=== PATIENT | female | born 1995 | race American Indian/Alaskan Native ===

== ENCOUNTER 2017-05-31 11:18 | Emergency (ER) | payer OTHER ==
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
[2017-05-31] MEDS ORDERED: MOTRIN PO ONE (13:56)
--- NOTE | 2017-05-31 14:32 | XRay Report ---
ROUTINE CHEST, TWO VIEWS: HISTORY: Cough. The trachea, heart, mediastinal contour, lung garcia and bony thorax are unremarkable. IMPRESSION: Unremarkable chest x-ray.
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
[2017-05-31 17:01] VITALS: BP 120/74
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
== END 2017-05-31 17:31 | disposition home or self-care (01) ==
LOC: ED 11:18
DX: S13.4XXA Sprain of ligaments of cervical spine, initial encounter (principal); S66.911A Strain of unspecified muscle, fascia and tendon at wrist and hand level, right hand, initial encounter; V89.2XXA Person injured in unspecified motor-vehicle accident, traffic, initial encounter; Y93.89 Activity, other specified; Y92.89 Other specified places as the place of occurrence of the external cause; Y99.8 Other external cause status
CPT/HCPCS: 71046

== ENCOUNTER 2017-10-17 01:18 | Emergency (ER) | payer SELFPAY ==
[2017-10-17 01:38] VITALS: BP 134/83
[2017-10-17] MEDS ORDERED: ZITHROMAX PO ONE (05:54)
[2017-10-17] MEDS ORDERED: XYLOCAINE 1% MPF 5 mL INFILTRATI ONE (05:54)
[2017-10-17] MEDS ORDERED: ROCEPHIN IM ONE (05:54)
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
[2017-10-17 06:20] LABS: Bilirubin,Urine NEG (Negative); Blood,Urine LG (Negative); Color,Urine Yellow (Yellow); Mucus,Urine 3+ /HPF
[2017-10-17 06:23] LABS: HCG Qualitative,Urine Negative (Negative)
== END 2017-10-17 06:54 | disposition home or self-care (01) ==
LOC: ED 01:40
DX: Z20.2 Contact with and (suspected) exposure to infections with a predominantly sexual mode of transmission (principal); R30.0 Dysuria
CPT/HCPCS: 81001; 81025; 87086; 87591; 96372; 99283; J0696

== ENCOUNTER 2018-11-30 12:18 | Emergency (ER) | payer SELFPAY ==
[2018-11-30 12:27] VITALS: BP 126/84
--- NOTE | 2018-11-30 12:37 | Emergency Department Report ---
ED ENT HPI - General Chief complaint: Earache Stated complaint: L EAR PAIN Time Seen by Provider: 11/30/18 12:26 Source: patient Mode of arrival: Ambulatory Limitations: No Limitations - History of Present Illness Initial comments: This is a 23-year-old female nontoxic well in appearance with no signs of distress presents to the ED with complaint of left earache. Patient denies any hearing loss. Denies any mastoid tenderness. Denies any fever, chills, headache, nausea, vomiting, chest pain or SOB. Denies any other complaints. Denies any allergies. MD complaint: ear pain -: days(s) Location: L ear Severity: mild Severity scale (0 -10): 8 Quality: aching Consistency: constant Improves with: none Worsens with: none Associated Symptoms: denies: fever, cough, gum swelling, toothache, pain with swallowing, sore throat, tinnitus, hearing loss, discharge from ear, rhinorrhea - Related Data Previous Rx's Medication Instructions Recorded Last Taken Type Cyclobenzaprine [Flexeril] 10 mg PO QHS PRN #7 tablet 05/31/17 Unknown Rx Ibuprofen [Motrin] 600 mg PO Q8H PRN #30 tablet 05/31/17 Unknown Rx Amoxicillin [Amoxicillin TAB] 875 mg PO BID #20 tablet 11/30/18 Unknown Rx Allergies Allergy/AdvReac Type Severity Reaction Status Date / Time No Known Allergies Allergy Verified 11/30/18 12:19 ED Dental HPI - General Chief complaint: Earache Stated complaint: L EAR PAIN Time Seen by Provider: 11/30/18 12:26 Source: patient Mode of arrival: Ambulatory Limitations: No Limitations - Related Data Previous Rx's Medication Instructions Recorded Last Taken Type Cyclobenzaprine [Flexeril] 10 mg PO QHS PRN #7 tablet 05/31/17 Unknown Rx Ibuprofen [Motrin] 600 mg PO Q8H PRN #30 tablet 05/31/17 Unknown Rx Amoxicillin [Amoxicillin TAB] 875 mg PO BID #20 tablet 11/30/18 Unknown Rx Allergies Allergy/AdvReac Type Severity Reaction Status Date / Time No Known Allergies Allergy Verified 11/30/18 12:19 ED Review of Systems ROS: Stated complaint: L EAR PAIN Other details as noted in HPI Constitutional: denies: chills, fever Eyes: denies: eye pain, eye discharge, vision change ENT: ear pain. denies: throat pain Respiratory: denies: cough, shortness of breath, wheezing Cardiovascular: denies: chest pain, palpitations Endocrine: no symptoms reported Gastrointestinal: denies: abdominal pain, nausea, diarrhea Genitourinary: denies: urgency, dysuria, discharge Musculoskeletal: denies: back pain, joint swelling, arthralgia Skin: denies: rash, lesions Neurological: denies: headache, weakness, paresthesias Psychiatric: denies: anxiety, depression Hematological/Lymphatic: denies: easy bleeding, easy bruising ED Past Medical Hx - Past Medical History Previous Medical History?: No Additional medical history: [place] - Surgical History Past Surgical History?: No - Social History Smoking Status: Never Smoker Substance Use Type: None - Medications Home Medications: Home Medications Medication Instructions Recorded Confirmed Last Taken Type Cyclobenzaprine [Flexeril] 10 mg PO QHS PRN #7 tablet 05/31/17 Unknown Rx Ibuprofen [Motrin] 600 mg PO Q8H PRN #30 tablet 05/31/17 Unknown Rx Amoxicillin [Amoxicillin TAB] 875 mg PO BID #20 tablet 11/30/18 Unknown Rx ED Physical Exam - General Limitations: No Limitations General appearance: alert, in no apparent distress - Head Head exam: Present: atraumatic, normocephalic - Expanded ENT Exam Expanded Ear exam: Present: normal external inspection TM/Canal exam: Erythema: Left TM, Bulging: Left TM Mouth exam: Present: normal external inspection Teeth exam: Present: normal inspection Throat exam: Positive: normal inspection - Neck Neck exam: Present: normal inspection, full ROM. Absent: tenderness, meningismus, lymphadenopathy ED Course Vital Signs 11/30/18 12:25 Temperature 98.0 F Pulse Rate 70 Respiratory 16 Rate Blood Pressure 126/84 O2 Sat by Pulse 98 Oximetry - Reevaluation(s) Reevaluation #1: 11/30/18 12:34 Patient is speaking in full sentences with no signs of distress noted. ED Medical Decision Making - Medical Decision Making Patient was instructed to Follow-up with a primary care doctor in 3-5 days or if symptoms worsen and continue return to emergency room as soon as possible. At time of discharge, the patient does not seem toxic or ill in appearance. No acute signs of distress noted. Patient agrees to discharge treatment plan of care. No further questions noted by the patient. Critical care attestation.: If time is entered above; I have spent that time in minutes in the direct care of this critically ill patient, excluding procedure time. ED Disposition Clinical Impression: Left otitis media Qualifiers: Otitis media type: unspecified Qualified Code(s): H66.92 - Otitis media, unspecified, left ear Disposition: DC- TO HOME OR SELFCARE Is pt being admited?: No Does the pt Need Aspirin: No Condition: Stable Instructions: Otitis Media (ED) Additional Instructions: Follow-up with a primary care doctor in 3-5 days or if symptoms worsen and continue return to emergency room as soon as possible. Prescriptions: Amoxicillin [Amoxicillin TAB] 875 mg PO BID #20 tablet Referrals: PRIMARY CAREMD [Referring] - 3-5 Days RAMAN KING MD [Staff Physician] - 3-5 Days [facility] [Outside] - 3-5 Days [facility] [Outside] - 3-5 Days Forms: Work/School Release Form(ED)
== END 2018-11-30 12:55 | disposition home or self-care (01) ==
LOC: ED 12:18
DX: H66.92 Otitis media, unspecified, left ear (principal); Z79.1 Long term (current) use of non-steroidal anti-inflammatories (NSAID)
CPT/HCPCS: 99282

== ENCOUNTER 2019-01-25 19:29 | Emergency (ER) | payer SELFPAY ==
[2019-01-25 19:54] VITALS: BP 136/83
--- NOTE | 2019-01-25 19:59 | Emergency Department Report ---
ED ENT HPI - General Chief complaint: Earache Stated complaint: LEFT EAR PAIN Source: patient Mode of arrival: Ambulatory Limitations: No Limitations - History of Present Illness Initial comments: 23yo BF states that she has L ear pain that has not resolved since taking antibiotics 2 weeks ago. The patient further states that sometimes voices sound muffled in L ear. MD complaint: ear pain -: week(s) (2) Location: R ear Severity: moderate Severity scale (0 -10): 9 Quality: sharp, constant Consistency: constant Improves with: none Worsens with: movement - Related Data Previous Rx's Medication Instructions Recorded Last Taken Type Cyclobenzaprine [Flexeril] 10 mg PO QHS PRN #7 tablet 05/31/17 Unknown Rx Ibuprofen [Motrin] 600 mg PO Q8H PRN #30 tablet 05/31/17 Unknown Rx Amoxicillin [Amoxicillin TAB] 875 mg PO BID #20 tablet 11/30/18 Unknown Rx Allergies Allergy/AdvReac Type Severity Reaction Status Date / Time No Known Allergies Allergy Verified 11/30/18 12:19 ED Dental HPI - General Chief complaint: Earache Stated complaint: LEFT EAR PAIN Source: patient Mode of arrival: Ambulatory Limitations: No Limitations - Related Data Previous Rx's Medication Instructions Recorded Last Taken Type Cyclobenzaprine [Flexeril] 10 mg PO QHS PRN #7 tablet 05/31/17 Unknown Rx Ibuprofen [Motrin] 600 mg PO Q8H PRN #30 tablet 05/31/17 Unknown Rx Amoxicillin [Amoxicillin TAB] 875 mg PO BID #20 tablet 11/30/18 Unknown Rx Allergies Allergy/AdvReac Type Severity Reaction Status Date / Time No Known Allergies Allergy Verified 11/30/18 12:19 ED Review of Systems ROS: Stated complaint: LEFT EAR PAIN Other details as noted in HPI ED Past Medical Hx - Past Medical History Additional medical history: Glaucoma - Surgical History Past Surgical History?: No - Social History Smoking Status: Never Smoker Substance Use Type: None - Medications Home Medications: Home Medications Medication Instructions Recorded Confirmed Last Taken Type Cyclobenzaprine [Flexeril] 10 mg PO QHS PRN #7 tablet 05/31/17 Unknown Rx Ibuprofen [Motrin] 600 mg PO Q8H PRN #30 tablet 05/31/17 Unknown Rx Amoxicillin [Amoxicillin TAB] 875 mg PO BID #20 tablet 11/30/18 Unknown Rx ED Physical Exam - General Limitations: No Limitations - Eye Eye exam: Present: normal appearance - ENT ENT exam: Present: other (L ear pain with palpation; air bubles visulazed behind L TM) - Rectal Rectal exam: Present: deferred ED Course Vital Signs 01/25/19 19:51 Temperature 98.7 F Pulse Rate 91 H Respiratory 14 Rate Blood Pressure 136/83 O2 Sat by Pulse 100 Oximetry ED Medical Decision Making - Medical Decision Making The patient was explained that her ear pain and discomfort appears top be Eustachian tube disorder. Flonase, Claritin and prednisone was prescribed. Pt was instructed to f/u with PCP and see ER as needed or if symptoms worsen. Critical care attestation.: If time is entered above; I have spent that time in minutes in the direct care of this critically ill patient, excluding procedure time. ED Disposition Clinical Impression: Eustachian tube dysfunction Disposition: - TO HOME OR SELFCARE Is pt being admited?: No Does the pt Need Aspirin: No Condition: Stable Additional Instructions: The patient was explained that her ear pain and discomfort appears top be Eustachian tube disorder. She was explained that her discomfort was not emergent and that she will be referred to [facility]. The patient verbalized understanding and departed. She was told that if her pain or other severe symptoms arise to return to the ED. Referrals: [facility] [Outside] - 3-5 Days Time of Disposition: 20:14 ED General adult EXAM - General General appearance: alert, in no apparent distress Limitations: No Limitations - Head Head exam: Positive: atraumatic, normocephalic, normal inspection - Eye Eye exam: normal appearance, PERRL, EOMI Extraocular Movement: Normal Pupils: Positive: normal accommodation - ENT ENT exam: Positive: other - Neck Neck exam: Positive: normal inspection - Respiratory Respiratory exam: Positive: normal lung sounds bilaterally - Cardiovascular Cardiovascular Exam: Positive: regular rate, normal rhythm, normal heart sounds - GI/Abdominal GI/Abdominal exam: Positive: normal bowel sounds - Rectal Rectal exam: Positive: deferred - exam: Positive: deferred - Extremities Extremities exam: Positive: normal inspection, full ROM - Back Back exam: normal inspection - Neurological Neurological exam: Positive: alert, altered, oriented X3 - Psychiatric Psychiatric exam: Positive: normal affect, normal mood - Skin Skin exam: Positive: warm, dry
== END 2019-01-25 20:00 | disposition left against medical advice (07) ==
LOC: ED 19:29
DX: H69.82 Other specified disorders of Eustachian tube, left ear (principal)
CPT/HCPCS: 99281

== ENCOUNTER 2020-07-28 21:14 | Emergency (ER) | payer SELFPAY ==
[2020-07-28 23:38] VITALS: BP 140/90
--- NOTE | 2020-07-28 23:43 | Emergency Department Report ---
Chief Complaint: Medical Clearance Stated Complaint: POSS STD Time Seen by Provider: 07/28/20 23:39 - HPI History of Present Illness: HPI: This is a 25-year-old female who is concerned about STD exposure. He stated that her boyfriend had sex with another female who had an STD. No STD. She does not have any symptoms. She denies discharge or abdominal pain. She denies fever. Physical exam: Patient appears well. Ambulates without difficulty. Patient has normal vital signs. I have referred patient to outpatient physician and [facility] department. Medical screening exam performed completed. Patient does not have a life or limb threatening condition which needs further treatment or evaluation. - Exam Vital Signs: Vital Signs 07/28/20 23:36 Temperature 98.3 F Pulse Rate 78 Respiratory 20 Rate Blood Pressure 140/90 [Right] O2 Sat by Pulse 100 Oximetry MSE screening note: Focused history and physical exam performed. Due to findings the following was ordered: ED Disposition for MSE Clinical Impression: STD exposure Disposition: Z-[id number] MED SCREENING EXAM-LEFT Is pt being admited?: No Does the pt Need Aspirin: No Condition: Stable Referrals: [facility] [place] [Outside] - 3-5 Days WALTER COSME MD [Staff Physician] - 3-5 Days
== END 2020-07-28 23:50 | disposition left against medical advice (07) ==
LOC: ED 21:14
DX: Z20.2 Contact with and (suspected) exposure to infections with a predominantly sexual mode of transmission (principal); Z53.21 Procedure and treatment not carried out due to patient leaving prior to being seen by health care provider

== ENCOUNTER 2020-12-06 01:09 | Emergency (ER) | payer OTHER | END 2020-12-06 01:19 | LOC: ED 01:09 | DX: T63.441A Toxic effect of venom of bees, accidental (unintentional), initial encounter (principal); Z53.21 Procedure and treatment not carried out due to patient leaving prior to being seen by health care provider; Y92.89 Other specified places as the place of occurrence of the external cause ==